=== PATIENT | male | born 1955 | race Caucasian/White ===

== ENCOUNTER 2023-01-27 06:24 | Day surgery (SDC) | payer MEDICARE, SELFPAY ==
[2023-01-27 06:28] VITALS: BMI 27.2
--- NOTE | 2023-01-27 07:24 | P.CONAN_ITS ---
HPI - Anesthesia Eval Consult details Narrative: for colonoscopy [facility] Past Medical History Medical History Bifascicular block Hyperlipidemia Osteoarthritis Family History Family history of problems with anesthesia: No Surgical History Surgical History History of total right knee replacement History of Problems with Anesthesia: No Social History Social History Are you a primary day care director to a significant other at home: No Do you presently have visiting nurse or other home services: No Patient Tobacco Use Status: Current everyday Tobacco user Tobacco use type: Pipe Smoked in Last 30 Days: Yes Have you been hit, kicked, punched, or otherwise hurt by someone within the past year? If so, by whom?: No Are you DNR?: No Advance Directives: No Advance Directives Information Provided: Yes Recently lost weight without trying: No Eating poorly because of decreased appetite: No Nutrition Risks: No Nutritional Risk Poor oral hygiene: No Meds Allergies Allergy/AdvReac Type Severity Reaction Status Date / Time No Known Allergies Allergy Verified 01/26/23 07:32 Exam Exam Date and Time: January 27, 2023 0724 Height,Weight and Vital Signs: Height 6 ft 2 in Weight 96.162 kg Airway Mallampati Class: II TM Dist: >3cm Neck ROM: Full Loose/Missing/Broken Teeth: No Heart: ok Lungs: ok Assessment and Plan Assessment Anesthesia Assessment: Anesthesia Plan Discussed and Chart Reviewed Final Anesthetic Review Family History of Problems with Anesthesia: No History of Problems with Anesthesia: No NPO: Yes ASA Class: II Final Preanesthetic Review: No Changes in Pt Med Stat, Meds/Allgs Chart Reviewed, Consent Obtained/Reviewed and Anes Risks/Benef Reviewed Patient Risk: Low Procedure Risk: Low Anesthetic Plan Anesthetic Plan: MAC: and Agree w/ Assess. and Plan Disposition: Standard PACU
--- NOTE | 2023-01-27 07:24 | MHC.SHP ---
Pre-Procedural Eval Section A Date of Service: 01/27/23 Section B Chief Complaint: screening Details of Present Illness: see H&P no changes Relevant Family History (Specify if Yes): No Relevant Social History: None Present Medications: see Short Stay Collaborative assessment Medical History: No relevant PMH Allergies: Allergies Allergy/AdvReac Type Severity Reaction Status Date / Time No Known Allergies Allergy Verified 01/26/23 07:32 Review of Systems Sugical H&P ROS: Negative: Constitution, Cardiovascular, Respiratory, Neurological, Psychiatric, Hem-Onc, Allergic/Immunologic, Gastrointestinal, Genitourinary, Musculoskeletal, Integumentary, Endocrine and Eyes/Ears/Nose/Throat Exam Surgical H&P Exam: Normal: HEENT, Normal: Heart, Normal: Lungs, Normal: Extremities, Normal: Abdomen, Normal: Skin and Normal: Neurological Plan Diagnosis/Plan: Unchanged I have reviewed the history and physical and performed a pertinent physical examination on my patient. No changes have occurred unless specified. Time Spent With Patient Time: Total time managing care of this patient today ____ minutes.
--- NOTE | 2023-01-27 08:34 | PM.OP ---
Brief Operative Note Date of Service: 01/27/23 Pre-op diagnosis: screening Post-op diagnosis: same (colon polyps) Procedure: colonoscopy Surgeon: Neel Steele Anesthesia: MAC Was an Senior Director Marketing used for this Procedure?: No Estimated blood loss (mL): 2 Pathology: other Condition: stable Disposition: PACU
[2023-01-27 08:39] VITALS: BP 99/63; PULSE 55; RESP 16; TEMP 36.2; O2SAT 95
[2023-01-27 08:54] VITALS: BP 107/65; PULSE 56; RESP 16; TEMP 36.3; O2SAT 98
--- NOTE | 2023-01-27 09:36 | OP_ITS ---
DATE OF SERVICE: 01/27/2023 SURGEON: Neel Steele MD INDICATIONS: Colon cancer screening and prior history of adenomatous colon polyps. PREOPERATIVE DIAGNOSIS: POSTOPERATIVE DIAGNOSIS: PROCEDURE PERFORMED: Colonoscopy to the cecum with snare polypectomy and biopsy. ESTIMATED BLOOD LOSS: COMPLICATIONS: ANESTHESIA: Monitored anesthesia care. ASSISTANTS: SPECIMENS: DESCRIPTION OF PROCEDURE: A history and physical performed. The risks and benefits of the procedure were explained to the patient. Informed consent was obtained. The patient was placed in the left lateral decubitus position. A digital rectal exam was performed and was found to be normal. The Olympus pediatric video colonoscope was introduced into the rectum and advanced to the cecum without difficulty. The cecum was identified by transillumination, palpation, and identification of ileocecal valve. Examination was performed. The scope was removed. He tolerated the procedure well and was returned to recovery area in stable condition. FINDINGS: The terminal ileum was not examined. The visualized colonic mucosa was normal. The quality of the prep was fair with some liquid stool and retained undigested food sometimes clogged the scope. This was washed and suctioned as best possible. Three polyps were identified in the hepatic flexure, all measured between 5 and 10 mm. These were removed with a snare and recovered via suction. There were multiple hyperplastic appearing rectal polyps, which were all less than 10 mm. Three of these were removed with biopsy forceps. A polyp at 65 cm, measuring 5 mm was removed with a snare and recovered with biopsy forceps. Random biopsies were obtained from the sigmoid colon as the patient had a history of collagenous colitis on previous biopsies. Retroflexed examination showed some internal hemorrhoids. IMPRESSION: Colon polyps. RECOMMENDATION: Follow up the biopsy results. MD NIKOS Cain/LISSY / [id number]
== END 2023-01-27 09:16 | disposition home or self-care (01) ==
PROVIDERS: PCP Nurse Practitioner Adult Health; Visit Provider Internal Medicine Gastroenterology
PROC: 0DJD8ZZ Inspection of Lower Intestinal Tract, Via Natural or Artificial Opening Endoscopic (ICD-10-PCS; CPT 45378; principal; 2023-01-27 07:30)
DX: Z12.11 Encounter for screening for malignant neoplasm of colon (principal); D12.3 Benign neoplasm of transverse colon; K63.5 Polyp of colon; K64.8 Other hemorrhoids; K52.832 Lymphocytic colitis; Z86.010 Personal history of colon polyps
CPT/HCPCS: 45385; 45380; 88305; J3010